=== PATIENT | male | born 1980 | race American Indian/Alaskan Native ===

== ENCOUNTER 2017-12-09 12:08 | Emergency (ER) | payer OTHER ==
[2017-12-09 12:20] VITALS: BP 149/86; PULSE 91; RESP 18; TEMP 98.9; O2SAT 100
--- NOTE | 2017-12-09 12:45 | C.PDOC ---
History Of Present Illness 36 yr old male w/ recent dental infection p/w R groin crease pain. Pt notes drainage, with decreased size of "abscess" over the past couple of weeks. He notes that he has been using warm compressess and has been able to squeeze out a small amount of yellow fluid. He notes that overall the "abscess" has decreased in seize and denies any warmth, pain or redness that is spreading. He notes that he was recently treated with and is still on amoxicillin for a dental issue. He denies any pain or problem with his dentition today. No fever, chills or night sweats. No neck stiffness or pain. No penile d/c or rash. No dysuria, urgency or frequency No other complaints Time Seen by Provider: 12/09/17 12:35 Chief Complaint (Nursing): Abnormal Skin Integrity Past Medical History Vital Signs: Last Vital Signs Temp 98.9 F 12/09/17 12:17 Pulse 91 H 12/09/17 12:17 Resp 18 12/09/17 12:17 BP 149/86 12/09/17 12:17 Pulse Ox 100 12/09/17 12:17 - Medical History PMH: HTN - [facility] OTHER SKIN & SUBQ I D (03/03/13) TETANUS TOXOID ADMINIST (03/03/13) Family History: States: Unknown Family Hx - Social History Hx Tobacco Use: Yes Hx Alcohol Use: Yes Hx Substance Use: Yes (MJ) - Immunization History Hx Tetanus Toxoid Vaccination: No Hx Influenza Vaccination: No Hx Pneumococcal Vaccination: No Review Of Systems Constitutional: Negative for: Fever, Chills, Sweats Eyes: Negative for: Pain, Vision Change ENT: Negative for: Ear Pain, Ear Discharge Cardiovascular: Negative for: Chest Pain Respiratory: Negative for: Cough Gastrointestinal: Negative for: Nausea Genitourinary: Negative for: Dysuria Musculoskeletal: Negative for: Neck Pain Skin: Negative for: Rash Neurological: Negative for: Weakness Psych: Negative for: Anxiety Physical Exam - Physical Exam Appears: Well, No Acute Distress Skin: Normal Color, Warm, Dry, Other (R groin crease folliculitis w/ 2mm x 3mm induration w/ out fluctuance or crepitus. No perineum abscess or crepitus. No pain out of proportion or [id number]) Head: Atraumatic, Normacephalic Eye(s): bilateral: Normal Inspection, PERRL, EOMI Nose: Normal Oral Mucosa: Moist Tongue: Normal Appearing Lips: Normal Appearing Teeth: Other (no abscess noted) Throat: Normal Neck: Normal Cardiovascular: Rhythm Regular Respiratory: Normal Breath Sounds Gastrointestinal/Abdominal: Normal Exam Back: Normal Inspection Male Genital: Normal Inspection, No Testicular Tenderness, No Testicular Swelling, No Inguinal Tenderness, No Inguinal Swelling, No Scrotal Swelling Extremity: Normal ROM Neurological/Psych: Oriented x3, Normal Speech, Normal Cognition, No Cerebellar Signs Gait: Steady ED Course And Treatment O2 Sat by Pulse Oximetry: 100 Medical Decision Making Medical Decision Makin yr old male w/ recent abx for dental infx w/ out clinical signs on my exam of abscess in dental area p/w R groin improving pain and "abscess". On exam, furncule/folliculitis w/ out crepitus or erythema. No fluctuance on exam. US did not show pocket of drainage. US did not show pockets of air. No indication of sepsis. No penile d/c or pain to testicle / penis. No perinem pain or redness. No rectal pain per pt. Given doxy script and f/u with primary Disposition - Disposition Referrals: [facility] [Outside] Disposition: HOME/ ROUTINE Disposition Time: 13:00 Condition: GOOD Prescriptions: Doxycycline Hyclate 100 mg PO BID 7 Days #14 capsule Instructions: Boil (DC), Folliculitis (DC) Forms: [facility] (Surinamese), Work Excuse - Clinical Impression Clinical Impression: Furuncle
== END 2017-12-09 14:03 | disposition home or self-care (01) ==
LOC: C.ER 12:08
DX: L02.224 Furuncle of groin (principal)